=== PATIENT | male | born 1965 | race Two or more races ===

== ENCOUNTER 2017-10-06 10:37 | Emergency (ER) | payer MEDICARE ==
--- NOTE | 2017-10-06 10:54 | ER Document Report ---
ED Medical Screen (RME) - General Chief Complaint: Head Injury Stated Complaint: HEAD INJURY Time Seen by Provider: 10/06/17 10:49 Notes: RAPID MEDICAL EVALUATION DISCLOSURE I have seen this patient as part of a Rapid Medical Evaluation and, if applicable, placed any initially appropriate orders. The patient will be seen and fully evaluated, including a full history and physical exam, by a provider ( in Main ED or Fast Track) when a room becomes available. 51-year-old male here with complaints of headache and laceration to the back of his head that he sustained just prior to arrival. He states he was getting off a ladder and fell backwards hitting his head on unknown object. He did not have loss of consciousness. He was able to control the bleeding with pressure. His tetanus is up-to-date. Denies numbness tingling weakness. EXAM Strength 5/5 with intact sensation all extremities There is a 1 cm superficial laceration to the left occipital scalp TRAVEL OUTSIDE OF THE [place] IN LAST 30 DAYS: No - Related Data Allergies/Adverse Reactions: No Known Allergies Allergy (Verified 10/06/17 10:48) Physical Exam - Vital signs Vitals: Temp Pulse Resp BP Pulse Ox 97.9 F 86 16 151/86 H 95 10/06/17 10:41 10/06/17 10:41 10/06/17 10:41 10/06/17 10:41 10/06/17 10:41 Course - Vital Signs Vital signs: Temp Pulse Resp BP Pulse Ox 97.9 F 86 16 151/86 H 95 10/06/17 10:41 10/06/17 10:41 10/06/17 10:41 10/06/17 10:41 10/06/17 10:41
--- NOTE | 2017-10-06 11:22 | RADIOLOGY REPORT (SQ) ---
EXAM DESCRIPTION: CT HEAD WITHOUT COMPLETED DATE/TIME: 10/06/2017 11:12 am REASON FOR STUDY: fell, hit head COMPARISON: None. TECHNIQUE: Axial images acquired through the brain without intravenous contrast. Images reviewed wi th bone, brain and subdural windows. Additional sagittal and coronal reconstructions were generated. Images stored on PACS. All CT scanners at this facility use dose modulation, iterative reconstruction, and/or weight based d osing when appropriate to reduce radiation dose to as low as reasonably achievable (ALARA). [facility]: Dose Right [facility]: CareDose [facility]: Dose Right [facility]: Teradose 4D [facility]: [employer] RADIATION DOSE: CT Rad equipment meets quality standard of care and radiation dose reduction techniq ues were employed. CTDIvol: 48.6 mGy. DLP: 953 mGy-cm. mGy. LIMITATIONS: None. FINDINGS: VENTRICLES: Normal size and contour. CEREBRUM: No masses. No hemorrhage. No midline shift. No evidence for acute infarction. Normal gra y/white matter differentiation. No areas of low density in the white matter. CEREBELLUM: No masses. No hemorrhage. No alteration of density. No evidence for acute infarction. EXTRAAXIAL SPACES: No fluid collections. No masses. ORBITS AND GLOBE: No intra- or extraconal masses. Normal contour of globe without masses. CALVARIUM: No fracture. PARANASAL SINUSES: Mucous membrane thickening and air-fluid levels throughout the ethmoid air cells a nd left frontal sinus. Mucous membrane thickening in the right maxillary sinus. SOFT TISSUES: No mass or hematoma. OTHER: No other significant finding. IMPRESSION: No acute findings. EVIDENCE OF ACUTE STROKE: NO. COMMENT: Quality ID # [id number]: Final reports with documentation of one or more dose reduction techniques (e.g., Automated exposure control, adjustment of the mA and/or kV according to patient size, use of iterative reconstruction technique) TECHNICAL DOCUMENTATION: JOB ID: [id number] [employer]- All Rights Reserved Reading location - IP/workstation name: [email or web address] TO [email or web address]
--- NOTE | 2017-10-06 13:52 | ER Document Report ---
ED Head/Face/Scalp Injury - General Chief Complaint: Head Injury Stated Complaint: HEAD INJURY Time Seen by Provider: 10/06/17 10:49 Mode of Arrival: Ambulatory Information source: Patient Notes: Patient is a 51-year-old male who presented to the ER today for laceration to the left side of the back of his head after he was climbing a ladder, thought that he was all the way down to the ground so he put his foot out but he was still a little higher than he thought, slipped and fell hitting the back of his head on a bird feeder he thinks. Patient did not lose consciousness, denies any blurred vision, nausea, vomiting or weakness or numbness or tingling anywhere. Patient states bleeding is controlled with bandaging only. He is up- to-date on his tetanus. TRAVEL OUTSIDE OF THE [place] IN LAST 30 DAYS: No - Related Data Allergies/Adverse Reactions: No Known Allergies Allergy (Verified 10/06/17 10:48) Past Medical History - General Information source: Patient - Social History Smoking Status: Current Every Day Smoker Chew tobacco use (# tins/day): No Frequency of alcohol use: None Family History: Reviewed & Not Pertinent Patient has suicidal ideation: No Patient has homicidal ideation: No Renal/ Medical History: Denies: Hx Peritoneal Dialysis Past Surgical History: Reports: Hx Orthopedic Surgery - right leg Review of Systems - Review of Systems Constitutional: No symptoms reported EENT: No symptoms reported Cardiovascular: No symptoms reported Respiratory: No symptoms reported Gastrointestinal: No symptoms reported Genitourinary: No symptoms reported Male Genitourinary: No symptoms reported Musculoskeletal: No symptoms reported Skin: See HPI Hematologic/Lymphatic: No symptoms reported Neurological/Psychological: See HPI Physical Exam - Vital signs Vitals: Temp Pulse Resp BP Pulse Ox 97.9 F 86 16 151/86 H 95 10/06/17 10:41 10/06/17 10:41 10/06/17 10:41 10/06/17 10:41 10/06/17 10:41 - Notes Notes: PHYSICAL EXAMINATION: GENERAL: Disgruntled, otherwise in no acute distress. HEAD: Atraumatic, normocephalic. EYES: Pupils equal round and reactive to light, extraocular movements intact, sclera anicteric, conjunctiva are normal. NECK: Normal range of motion, supple without lymphadenopathy LUNGS: CTAB and equal. No wheezes rales or rhonchi. HEART: Regular rate and rhythm without murmurs EXTREMITIES: Normal range of motion, no pitting edema. No cyanosis. NEUROLOGICAL: Cranial nerves grossly intact. Normal sensory/motor exams. Good and equal strength bilaterally, Kernig and Brudzinski's signs negative, Romberg' s test normal, normal heel to khan testing PSYCH: Normal mood, normal affect. SKIN: Warm, Dry, normal turgor, small puncture to the left occipital scalp, no active bleeding, superficial, abrasion surrounding Course - Re-evaluation Re-evalutation: 10/06/17 14:12 Wound was flushed out with saline, dressed with gauze and Kerlix, Coban and patient advised to keep the bandage on for 12 hours at least. There is no active bleeding today and the puncture has to be manipulated to even open, initially it just looks like an abrasion. CT of the head negative for any acute pathology today. - Vital Signs Vital signs: Temp Pulse Resp BP Pulse Ox 97.5 F 73 16 137/93 H 100 10/06/17 13:58 10/06/17 13:58 10/06/17 13:58 10/06/17 13:58 10/06/17 13:58 Discharge - Discharge Clinical Impression: Head injury Qualifiers: Encounter type: initial encounter Qualified Code(s): S09.90XA - Unspecified injury of head, initial encounter Condition: Stable Disposition: HOME, SELF-CARE Additional Instructions: Return immediately for any new or worsening symptoms. Follow up with primary care provider, call tomorrow to make followup appointment.
[2017-10-06 14:04] VITALS: BP 137/93
== END 2017-10-06 14:01 | disposition home or self-care (01) ==
LOC: ER 10:37
DX: S01.03XA Puncture wound without foreign body of scalp, initial encounter (principal); W11.XXXA Fall on and from ladder, initial encounter; Y93.39 Activity, other involving climbing, rappelling and jumping off; F17.200 Nicotine dependence, unspecified, uncomplicated
CPT/HCPCS: 70450; 99284

== ENCOUNTER 2019-04-20 12:49 | Emergency (ER) | payer MEDICARE, MEDICAID ==
[2019-04-20] MEDS ORDERED: HYDROCODONE/ACETAMINOPHEN 5-325 MG TABLET PO ONE (13:50)
[2019-04-20] MEDS ORDERED: LIDOCAINE 1% INJ-PF (10 MG/ML) 30 ML SDV INJ ONE ×2 (13:50→16:30)
--- NOTE | 2019-04-20 13:50 | ER Document Report ---
ED Medical Screen (RME) - General Chief Complaint: Finger Injury Stated Complaint: FINGER INJURY Time Seen by Provider: 04/20/19 13:43 TRAVEL OUTSIDE OF THE [place] IN LAST 30 DAYS: No - HPI Notes: 04/20/19 13:48 53-year-old male to the emergency department with complaints of a right finger laceration that occurred just prior to arrival. He states he was woodworking and this saw caught his finger. He thinks that the most damage is done to the ring finger but he may have some lacerations to others. He states that he thinks he is up-to-date on his tetanus shot. He states the pain is starting to come on with the finger. He states that he came immediately after the injury. He denies any other complaints. I performed a brief medical screening exam on the patient and determined that he will need main side provider to further evaluate and repair finger. I have placed initial orders to help expedite his care. To the right ring finger there is a laceration that involves the nailbed. Bleeding is controlled. - Related Data Allergies/Adverse Reactions: No Known Allergies Allergy (Verified 10/06/17 10:48) Past Medical History Renal/ Medical History: Denies: Hx Peritoneal Dialysis Past Surgical History: Reports: Hx Orthopedic Surgery - right leg Physical Exam - Vital signs Vitals: Temp Pulse Resp BP 97.4 F 80 24 H 178/91 H 04/20/19 13:00 04/20/19 13:04/20/19 13:00 04/20/19 13:00 Course - Vital Signs Vital signs: Temp Pulse Resp BP Pulse Ox 97.4 F 80 24 H 178/91 H 04/20/19 13:00 04/20/19 13:00 04/20/19 13:00 04/20/19 13:00
--- NOTE | 2019-04-20 14:42 | RADIOLOGY REPORT (SQ) ---
EXAM DESCRIPTION: HAND RIGHT 3 VIEWS COMPLETED DATE/TIME: 04/20/2019 2:30 pm REASON FOR STUDY: right hand laceration COMPARISON: None. EXAM PARAMETERS: NUMBER OF VIEWS: Three views. TECHNIQUE: AP, lateral and oblique radiographic images acquired of the right hand. LIMITATIONS: None. FINDINGS: MINERALIZATION: Normal. BONES: No acute fracture or dislocation. JOINTS: No effusions. SOFT TISSUES: Soft tissue swelling lateral to the 5th metacarpal. There is no radiopaque foreign bod y. OTHER: No other finding. IMPRESSION: Soft tissue swelling lateral to the 5th metacarpal without an associated fracture or rad iopaque foreign body. TECHNICAL DOCUMENTATION: JOB ID: [id number] [employer]- All Rights Reserved Reading location - IP/workstation name: [email or web address]
[2019-04-20] MEDS ORDERED: IBUPROFEN 600 MG TABLET PO ONE (16:51)
--- NOTE | 2019-04-20 18:26 | ER Document Report ---
ED General - General Chief Complaint: Laceration Stated Complaint: FINGER INJURY Time Seen by Provider: 04/20/19 13:43 Notes: Patient is a 53-year-old male who presents to the emergency department with a right finger laceration. The main laceration is to his distal 4th digit. Has minor cuts to distal 3rd digit and 5th digit. He was working with wood and ended up having his finger with a saw. Patient states that he is up-to-date with his tetanus vaccine. Patient also sustained a small laceration to his right third finger. He is able to move all his digits with no difficulty. TRAVEL OUTSIDE OF THE [place] IN LAST 30 DAYS: No - Related Data Allergies/Adverse Reactions: No Known Allergies Allergy (Verified 10/06/17 10:48) Past Medical History - Social History Smoking Status: Current Every Day Smoker Frequency of alcohol use: None Drug Abuse: None Family History: Reviewed & Not Pertinent Patient has suicidal ideation: No Patient has homicidal ideation: No Neurological Medical History: Reports: Hx Seizures Renal/ Medical History: Denies: Hx Peritoneal Dialysis Past Surgical History: Reports: Hx Orthopedic Surgery - right leg Review of Systems - Review of Systems Notes: REVIEW OF SYSTEMS: CONSTITUTIONAL : Denies recent illness. Denies recent unintentional weight loss. Denies fever, chills, or sweats. EENT: Denies eye, ear, throat, or mouth pain, discharge, or symptoms. Denies nasal or sinus congestion. CARDIOVASCULAR: Denies chest pain. RESPIRATORY: Denies shortness of breath, cough, congestion, difficulty breathing, or wheezing. GASTROINTESTINAL: Denies nausea, vomiting, and diarrhea. Denies abdominal pain. Denies constipation. GENITOURINARY: Denies difficulty urinating, burning, blood in urine, urgency or frequency. MUSCULOSKELETAL: Denies neck and back pain. See HPI. SKIN: See HPI. HEMATOLOGIC : Denies easy bruising or bleeding. LYMPHATIC: Denies swollen, painful, enlarged glands. NEUROLOGICAL: Denies no numbness or tingling denies weakness. Denies headache. Denies altered mental status. Denies alteration in speech. PSYCHIATRIC: Denies stress, anxiety, alteration in sleep patterns, or depression. All other systems reviewed and negative. Physical Exam - Vital signs Vitals: Temp Pulse Resp BP 97.4 F 80 24 H 178/91 H 04/20/19 13:00 04/20/19 13:00 04/20/19 13:00 04/20/19 13:00 - Notes Notes: PHYSICAL EXAMINATION: GENERAL: Appears chronically ill, no acute distress. HEAD: Normocephalic, atraumatic. EYES: PERRL, conjunctiva normal, all extraocular movements intact, sclera nonicteric ENT: Moist mucous membranes. EXTREMITIES: Normal strength and range of motion, no pitting or edema. No cyanosis. NEUROLOGICAL: Moves all extremities upon command. Strength 5/5 in all extremities. PSYCH: Normal mood, normal affect. SKIN: Warm, dry. No rash, lesions, ulcerations noted. Normal skin turgor. Avulsion noted to right 4th digit (distal half of his nail avulsed.) Course - Re-evaluation Re-evalutation: 04/20/19 18:28 Unfortunately, and is unable to be repaired. I placed a Xeroform dressing and gauze, along with a finger splint to his right fourth finger. The x-ray shows that he has soft tissue swelling to the fifth digit, but it is actually on the fourth digit. There is fracture noted. Patient's fingernail is shelter cut off but the nail is still attached to the nailbed. I suspect his fingernail will grow back. I advised him that it will. I have a very low suspicion for a tendon injury, as he is able to move his finger at the DIP joint. He will be started on Keflex. He will follow-up with his primary care provider in regards to this visit. - Vital Signs Vital signs: Temp Pulse Resp BP Pulse Ox 98.2 F 71 18 115/92 H 100 04/20/19 18:47 04/20/19 18:47 04/20/19 18:47 04/20/19 18:47 04/20/19 18:47 Procedures - Laceration/Wound Repair Right Distal 4th digit Wound length (cm): 2 Wound's Depth, Shape: Superficial, Irregular, Flap, Nail-avulsed Laceration pre-procedure: Sterile PPE donned, Sterile drapes applied Anesthetic type: 1% Lidocaine Volume Anesthetic (mLs): 10 Wound explored: Clean, No foreign body removed Irrigated w/ Saline (mLs): 100 Wound Debrided: Minimal Wound Repaired With: Other - xeroform dressing Post-procedure NV exam normal: Yes Complications: No Hands back picture: 1 - Avusion/laceration Discharge - Discharge Clinical Impression: Finger laceration Qualifiers: Encounter type: initial encounter Finger: ring finger Damage to nail status: with damage Foreign body presence: without foreign body Laterality: right Qualified Code(s): S61.314A - Laceration without foreign body of right ring finger with damage to nail, initial encounter Condition: Stable Disposition: HOME, SELF-CARE Instructions: Prophylactic Antibiotic ([facility]), Soap Cleansing ([facility]) Additional Instructions: You were seen today in the emergency department for a laceration to your fingers. You have no broken bones. Unfortunately, the cut is not repairable. You are being placed on antibiotics. Please make sure you finish all your antibiotics. Follow-up with your primary care provider in regards to this visit. The pain medicine was sent electronically to your pharmacy. Prescriptions: Cephalexin Monohydrate [Keflex 500 mg Capsule] 500 mg PO Q6H 5 Days #20 capsule Hydrocodone/Acetaminophen [[place] 5-325 mg Tablet] 1 tab PO Q6H PRN #12 tablet PRN Reason:
[2019-04-20 18:48] VITALS: BP 115/92
== END 2019-04-20 18:47 | disposition home or self-care (01) ==
LOC: ER 12:49
DX: S61.314A Laceration without foreign body of right ring finger with damage to nail, initial encounter (principal); T14.8XXA Other injury of unspecified body region, initial encounter; W27.8XXA Contact with other nonpowered hand tool, initial encounter; Y93.89 Activity, other specified; F17.200 Nicotine dependence, unspecified, uncomplicated
CPT/HCPCS: 99283; 73130; A9270 ×2; J3490